=== PATIENT | male | born 1985 | race Caucasian/White ===

== ENCOUNTER 2020-03-05 12:41 | Emergency (ER) | payer BC ==
[~2020-03-05] VITALS: Ht 177.8 cm; Wt 95.0 kg
[2020-03-05 13:00] VITALS: BP 167/92
[2020-03-05 13:44] LABS: BASO % 1 % (0-3); EOS # 0.1 x10^3/uL (0.0-0.7); EOS % 1 % (0-3); HEMATOCRIT 44.9 % (39.0-53.0); HEMOGLOBIN 15.6 g/dL (13.0-17.5); LYMPH # 1.8 x10^3/uL (1.0-4.8); LYMPH % 27 % (24-48); MEAN CORPUSCULAR HEMOGLOBIN 30 pg (25-35); MEAN CORPUSCULAR HGB CONC 35 g/dL (31-37); MEAN CORPUSCULAR VOLUME 86 fL (79-100); MONO # 0.4 x10^3/uL (0.0-1.1); MONO % 5 % (0-9); NEUT # 4.3 x10^3/uL (1.8-7.7); NEUT % 66 % (31-73); PLATELET COUNT 157 x10^3/uL (140-400); RED BLOOD COUNT 5.24 x10^6/uL (4.30-5.70); RED CELL DISTRIBUTION WIDTH 13.1 % (11.5-14.5); WHITE BLOOD COUNT 6.6 x10^3/uL (4.0-11.0)
[2020-03-05 13:47] LABS: CALCIUM 9.3 mg/dL (8.5-10.1); CREATININE 1.1 mg/dL (0.7-1.3); GFR 75.7; POTASSIUM 3.6 mmol/L (3.5-5.1)
[2020-03-05 13:53] LABS: ALBUMIN 4.4 g/dL (3.4-5.0); ALBUMIN/GLOBULIN RATIO 1.4 (1.0-1.7); TOTAL BILIRUBIN 0.8 mg/dL (0.2-1.0); TOTAL PROTEIN 7.6 g/dL (6.4-8.2)
[2020-03-05] MEDS ORDERED: IOHEXOL 300 MG/ML 100ML VIAL. IV ONE (14:00)
--- NOTE | 2020-03-05 14:00 | PHYS DOC ---
Past Medical History Past Medical History: Hypertension Additional Past Medical Histor: kidney disease, abd hernia Past Surgical History: Appendectomy Additional Past Surgical Histo: bicep tendon repair Smoking Status: Current Every Day Smoker Alcohol Use: Sober General Adult EDM: Chief Complaint: RECTAL BLEED HPI: HPI: The history was obtained from the patient. Patient is a 34-year-old male with PMH kidney disease who presents with a chief complaint of blood in stool. Patient states he is had intermittent blood in his stool and urine over the past month. He notes approximately a year ago he was found to have blood in his stool. He states that he was hospitalized for anemia and concern for bleeding ulcer. He thinks the ulcer was located in his small intestine. Denies any history of endoscopy revealing gastritis or peptic ulcer disease. He states 1 month ago he began having bright red blood at the end of urination. He states this has since resolved. He he states he is also noted bright red blood filling up the toilet bowl intermittently over the past 3 weeks. He notes a change in his stool caliber. Reports passing flatus. Denies vomiting. Does note some nausea. States eating food seems to make his lower abdominal discomfort worse. Notes a constant aching sensation in his lower abdomen. Denies any dysuria. Denies any testicular pain. Notes that he does have a history of external hemorrhoid but thinks that the blood is from a different source. Denies syncope. Does not take blood thinners. reports a remote history of IV drug use denies any 8 months ago. Denies any current alcohol usage. Notes sexual activity with multiple partners over the past several weeks. No other complaints. Review of Systems: Review of Systems: Constitutional: Denies fever or chills. [] Eyes: Denies change in visual acuity. [] HENT: Denies nasal congestion or sore throat. [] Respiratory: Denies cough or shortness of breath. [] Cardiovascular: Denies chest pain or edema. [] GI: Positive for abdominal pain, nausea, blood in stool : Positive for hematuria Musculoskeletal: Denies back pain or joint pain. [] Integument: Denies rash. [] Neurologic: Denies headache, focal weakness or sensory changes. [] Endocrine: Denies polyuria or polydipsia. [] Lymphatic: Denies swollen glands. [] Psychiatric: Denies depression or anxiety. [] Heart Score: Risk Factors: Risk Factors: DM, Current or recent (<one month) smoker, HTN, HLP, family history of CAD, obesity. Risk Scores: Score 0 - 3: 2.5% MACE over next 6 weeks - Discharge Home Score 4 - 6: 20.3% MACE over next 6 weeks - Admit for Clinical Observation Score 7 - 10: 72.7% MACE over next 6 weeks - Early Invasive Strategies Allergies: Allergies: Allergies Coded Allergies Type Severity Reaction Last Updated Verified No Known Drug Allergies 03/05/20 No Physical Exam: PE: Constitutional: Well developed, well nourished, no acute distress, non-toxic appearance. [] HENT: Normocephalic, atraumatic, bilateral external ears normal, oropharynx moist, no oral exudates, nose normal. [] Eyes: PERRLA, EOMI, conjunctiva normal, no discharge. [] Neck: Normal range of motion, no tenderness, supple, no stridor. [] Cardiovascular:Heart rate regular rhythm, no murmur [] Lungs & Thorax: Bilateral breath sounds clear to auscultation [] Abdomen: Mild lower abdominal tenderness to palpation. No involuntary guarding or rigidity noted. No localization. : Circumcised. Testicles without tenderness to palpation. nonthrombosed nontender external hemorrhoid. Scant amount of bright red blood noted on SATURNINO. Will internal hemorrhoid. Skin: Warm, dry, no erythema, no rash. [] Back: No tenderness, no CVA tenderness. [] Extremities: No tenderness, no cyanosis, no clubbing, ROM intact, no edema. [] Neurologic: Alert and oriented X 3, normal motor function, normal sensory function, no focal deficits noted. [] Psychologic: Affect normal, judgement normal, mood normal. [] Current Patient Data: Labs: Laboratory Tests Test 03/05/20 13:10 White Blood Count 6.6 x10^3/uL (4.0-11.0) Red Blood Count 5.24 x10^6/uL (4.30-5.70) Hemoglobin 15.6 g/dL (13.0-17.5) Hematocrit 44.9 % (39.0-53.0) Mean Corpuscular Volume 86 fL (79-100) Mean Corpuscular Hemoglobin 30 pg (25-35) Mean Corpuscular Hemoglobin Concent 35 g/dL (31-37) Red Cell Distribution Width 13.1 % (11.5-14.5) Platelet Count 157 x10^3/uL (140-400) Neutrophils (%) (Auto) 66 % (31-73) Lymphocytes (%) (Auto) 27 % (24-48) Monocytes (%) (Auto) 5 % (0-9) Eosinophils (%) (Auto) 1 % (0-3) Basophils (%) (Auto) 1 % (0-3) Neutrophils # (Auto) 4.3 x10^3/uL (1.8-7.7) Lymphocytes # (Auto) 1.8 x10^3/uL (1.0-4.8) Monocytes # (Auto) 0.4 x10^3/uL (0.0-1.1) Eosinophils # (Auto) 0.1 x10^3/uL (0.0-0.7) Basophils # (Auto) 0.0 x10^3/uL (0.0-0.2) Sodium Level 140 mmol/L (136-145) Potassium Level 3.6 mmol/L (3.5-5.1) Chloride Level 102 mmol/L (98-107) Carbon Dioxide Level 30 mmol/L (21-32) Anion Gap 8 (6-14) Blood Urea Nitrogen 21 mg/dL (8-26) Creatinine 1.1 mg/dL (0.7-1.3) Estimated GFR (Cockcroft-Gault) 75.7 BUN/Creatinine Ratio 19 (6-20) Glucose Level 187 mg/dL (70-99) H Calcium Level 9.3 mg/dL (8.5-10.1) Total Bilirubin 0.8 mg/dL (0.2-1.0) Aspartate Amino Transferase (AST) 12 U/L (15-37) L Alanine Aminotransferase (ALT) 20 U/L (16-63) Alkaline Phosphatase 75 U/L (46-116) Total Protein 7.6 g/dL (6.4-8.2) Albumin 4.4 g/dL (3.4-5.0) Albumin/Globulin Ratio 1.4 (1.0-1.7) Laboratory Tests 03/05/20 13:10 Laboratory Tests 03/05/20 13:10 Vital Signs: Vital Signs Date Time Temp Pulse Resp B/P (MAP) Pulse Ox O2 Delivery O2 Flow Rate FiO2 03/05/20 13:00 97.8 120 16 167/92 (117) 98 Room Air 97.8 EKG: EKG: [] Radiology/Procedures: Radiology/Procedures: [facility] [address] [place] [address] IMAGING REPORT Signed PATIENT: RAJINDER DAWN ACCOUNT: [id number] : 1985 LOCATION: ER AGE: 34 SEX: M EXAM STATUS: PRE ER ORD. PHYSICIAN: DENNIS HARRISON DO REASON: abdominal pain with blood in stool PROCEDURE: CT ABD PELV W/ IV CONTRST ONLY EXAM: CT Abdomen and Pelvis with IV contrast INDICATION: Reason: abdominal pain with blood in stool / Spl. Instructions: [id number] 75ML / History: TECHNIQUE: Multi-detector row CT images were acquired from the lung bases through the abdomen and pelvis with the use of IV contrast. Sagittal and coronal images were acquired from the transaxial data. All CT scans performed at this facility utilize dose optimization techniques as appropriate to the exam, including the following: Automated exposure control and adjustment of the mA and/or KV according to patient size (this includes techniques or standardized protocols for targeted exams where dose is indication/reason for exam). IV CONTRAST: Administered ORAL CONTRAST: Not administered COMPARISON: None FINDINGS: LOWER CHEST: Unremarkable LIVER: Unremarkable BILIARY SYSTEM: Gallbladder is unremarkable. Bile ducts are not dilated. PANCREAS: Unremarkable SPLEEN: Unremarkable ADRENALS: Unremarkable KIDNEYS & URETERS: 2 cm rounded low-density lesion in the right kidney with curvilinear lobe dependent density (image 42 of series 2) is possibly a calyceal diverticulum. On a single phase study, it is incompletely characterized. Additional low-density lesions in the cortex of both kidneys are seen, less than a centimeter in size. These are statistically likely to be cysts. They do not require additional imaging follow-up in the absence of relevant symptoms. BLADDER: Unremarkable REPRODUCTIVE ORGANS: Unremarkable GASTROINTESTINAL: Stool-filled large bowel. Stomach, small bowel, and colon are otherwise unremarkable. The appendix is not well seen but no findings of acute appendicitis are evident.. MESENTERY/PERITONEUM/RETROPERITONEUM: Unremarkable VASCULAR: Unremarkable LYMPH NODES: Bilateral superficial inguinal adenopathy, more conspicuous on the left than on the right. Largest lymph node measures 2 cm short axis diameter. OSSEOUS & SOFT TISSUES: Unremarkable IMPRESSION: No specific cause for abdominal pain and bloody stools is identified. There is a moderate amount of stool throughout the large bowel. Correlate for constipation. If symptoms persist or recur, follow-up imaging could be considered. Electronically signed by: Yuli Gardiner MD (03/05/2020 2:21 PM) [facility] [place] SIGNED BY: YULI GARDINER MD DATE: 03/05/20 1421 [] Course & Med Decision Making: Course & Med Decision Making Pertinent Labs and Imaging studies reviewed. (See chart for details) [] Patient is a well-appearing 34-year-old male who presents with chief complaint of abdominal discomfort and blood in his stool. Initial vital signs unremarkable. Exam grossly unremarkable. Abdomen benign. Nonthrombosed external hemorrhoid visualized. Scant amount of gross blood noted on digital rectal exam. Basic labs were obtained. CBC without leukocytosis or anemia. Urinalysis without evidence of hematuria or infection. CT imaging reveals no acute surgical abnormality. Overall I do feel the patient is appropriate for discharge home. He will be discharged home with Pepcid, Zofran, Bentyl, and Anusol cream for his external nonthrombosed hemorrhoid. Patient is agreeable to this plan. He has tolerated p.o. in the emergency department. Repeat abdominal exam remains benign his vital signs been stable. He will be given referral to a GI specialist for potential outpatient colonoscopy. He was instructed to follow-up with his primary care physician in the next 2 to 3 days. Return precautions discussed and understood. Stable for discharge home. Edith Disclaimer: Edith Disclaimer: This electronic medical record was generated, in whole or in part, using a voice recognition dictation system. Departure Departure Impression: Primary Impression: Blood in stool Additional Impression: Abdominal pain Qualified Codes: R10.84 - Generalized abdominal pain Disposition: 01 HOME, SELF-CARE Condition: STABLE Referrals: GET TRUONG MD Patient Instructions: Hemorrhoids Scripts Hydrocortisone (ANUSOL-HC) 30 Gm Cream..g. 1 MARLEY TP TID for 10 Days, #30 GM 0 Refills Prov: DENNIS HARRISON DO 03/05/20 Ondansetron Hcl (ZOFRAN) 4 Mg Tablet 4 MG PO PRN TID PRN for NAUSEA, #9 nausea/vomiting Prov: DENNIS HARRISON DO 03/05/20 Famotidine (PEPCID) 20 Mg Tablet 20 MG PO BID for 7 Days, #14 TAB Prov: DENNIS HARRISON DO 03/05/20 Dicyclomine Hcl (DICYCLOMINE HCL) 20 Mg Tablet 1 TAB PO QIDPRN PRN for ABDOMINAL PAIN for 7 Days, TAB 1 Refill Prov: DENNIS HARRISON DO 03/05/20 Justicifation of Admission Dx: Justifications for Admission: Justification of Admission Dx: N/A DENNIS HARRISON DO Mar 05, 2020 14:00
[2020-03-05] MEDS ORDERED: CONTRAST GIVEN. MC PRN (14:15)
--- NOTE | 2020-03-05 14:24 | RAD ---
EXAM: CT Abdomen and Pelvis with IV contrast INDICATION: Reason: abdominal pain with blood in stool / Spl. Instructions: [id number] 75ML / History: TECHNIQUE: Multi-detector row CT images were acquired from the lung bases through the abdomen and pelvis with the use of IV contrast. Sagittal and coronal images were acquired from the transaxial data. All CT scans performed at this facility utilize dose optimization techniques as appropriate to the exam, including the following: Automated exposure control and adjustment of the mA and/or KV according to patient size (this includes techniques or standardized protocols for targeted exams where dose is indication/reason for exam). IV CONTRAST: Administered ORAL CONTRAST: Not administered COMPARISON: None FINDINGS: LOWER CHEST: Unremarkable LIVER: Unremarkable BILIARY SYSTEM: Gallbladder is unremarkable. Bile ducts are not dilated. PANCREAS: Unremarkable SPLEEN: Unremarkable ADRENALS: Unremarkable KIDNEYS & URETERS: 2 cm rounded low-density lesion in the right kidney with curvilinear lobe dependent density (image 42 of series 2) is possibly a calyceal diverticulum. On a single phase study, it is incompletely characterized. Additional low-density lesions in the cortex of both kidneys are seen, less than a centimeter in size. These are statistically likely to be cysts. They do not require additional imaging follow-up in the absence of relevant symptoms. BLADDER: Unremarkable REPRODUCTIVE ORGANS: Unremarkable GASTROINTESTINAL: Stool-filled large bowel. Stomach, small bowel, and colon are otherwise unremarkable. The appendix is not well seen but no findings of acute appendicitis are evident.. MESENTERY/PERITONEUM/RETROPERITONEUM: Unremarkable VASCULAR: Unremarkable LYMPH NODES: Bilateral superficial inguinal adenopathy, more conspicuous on the left than on the right. Largest lymph node measures 2 cm short axis diameter. OSSEOUS & SOFT TISSUES: Unremarkable IMPRESSION: No specific cause for abdominal pain and bloody stools is identified. There is a moderate amount of stool throughout the large bowel. Correlate for constipation. If symptoms persist or recur, follow-up imaging could be considered. Electronically signed by: Silvia Gardiner MD (03/05/2020 2:21 PM) [facility] [place]
[2020-03-05 15:04] LABS: BILIRUBIN,URINE NEGATIVE (NEG); CLARITY,URINE CLEAR; COLOR,URINE YELLOW; NITRITE,URINE NEGATIVE (NEG); PROTEIN,URINE NEGATIVE (NEG-TRACE)
[2020-03-05 15:06] LABS: PLT ESTIMATE ADEQUATE (ADEQUATE)
[2020-03-05 15:07] LABS: PLATELET CLUMP PRESENT
[2020-03-05 15:14] LABS: BACTERIA,URINE 0 /HPF (0-FEW); RBC,URINE 0 /HPF (0-2); SQUAMOUS EPITHELIAL CELL,UR FEW /LPF; WBC,URINE RARE /HPF (0-4)
[2020-03-05] MEDS ORDERED: DICY20TA3 PO (15:33)
[2020-03-05] MEDS ORDERED: HYDR30CR61 TP (15:33)
[2020-03-05] MEDS ORDERED: FAMO-63 PO (15:33)
[2020-03-05] MEDS ORDERED: ONDA4TAB7 PO (15:33)
== END 2020-03-05 15:54 | disposition home or self-care (01) ==
LOC: ER 12:41
DX: K92.1 Melena (principal); R10.84 Generalized abdominal pain; R20.2 Paresthesia of skin; R31.9 Hematuria, unspecified; I10 Essential (primary) hypertension; F17.200 Nicotine dependence, unspecified, uncomplicated; Z90.89 Acquired absence of other organs; Z98.890 Other specified postprocedural states
CPT/HCPCS: 36415; 74177; 80053; 81001; 85025; 87086; 87491; 87591; 99285; Q9967